=== PATIENT | male | born 1955 | race Caucasian/White ===

== ENCOUNTER 2023-03-29 20:24 | Emergency (ER) | payer OTHER, MEDICARE ==
[2023-03-29 21:56] VITALS: BP 96/62; PULSE 70; RESP 16; TEMP 97.9; BMI 25.8
== END 2023-03-29 22:00 | disposition home or self-care (01) ==
LOC: FER 20:24
DX: S00.03XA Contusion of scalp, initial encounter (principal); W01.198A Fall on same level from slipping, tripping and stumbling with subsequent striking against other object, initial encounter
CPT/HCPCS: 70450-TC; 99284-25